=== PATIENT | female | born 1955 | race Caucasian/White ===

== ENCOUNTER → 2017-04-30 13:10 | Outpatient (CLI) | payer BC ==
[2017-04-30 15:31] LABS: ALBUMIN 3.9 g/dL (3.4-5.0); BILIRUBIN - DIRECT 0.18 mg/dL (0.00-0.30); BILIRUBIN - INDIRECT 1.25 mg/dL (0.00-1.00); BILIRUBIN - TOTAL 1.43 mg/dL (0.2-1.3); PROTEIN - SERUM 7.9 g/dL (6.4-8.2)
== END | disposition home or self-care (01) ==
LOC: D.LAB 12:45 → D.US 13:00 → D.LAB 13:10 → D.RAD 14:00
PROVIDERS: Internal Medicine Gastroenterology
DX: Z86.010 Personal history of colon polyps (principal); Z48.815 Encounter for surgical aftercare following surgery on the digestive system; K76.0 Fatty (change of) liver, not elsewhere classified